=== PATIENT | female | born 1965 | race Caucasian/White ===

== ENCOUNTER → 2024-06-14 11:16 | Outpatient (BNVA) | payer OTHER, SELFPAY | PROVIDERS: PCP Nurse Practitioner Family; Visit Provider Nurse Practitioner Family | DX: E78.5 Hyperlipidemia, unspecified (principal); M25.50 Pain in unspecified joint; I10 Essential (primary) hypertension; R53.83 Other fatigue | CPT/HCPCS: 80053; 80061; 84443; 85025; 86038; 86431 ==

== ENCOUNTER 2024-06-25 13:16 | Outpatient (CLI) | payer OTHER, SELFPAY ==
--- NOTE | 2024-06-25 13:30 | XR_ITS ---
WS: [id number] SCREENING DEXA SCAN [place] CLINICAL INFORMATION: M81.0 - Age-related osteoporosis without current patholog... COMPARISON: None. FINDINGS: The L1-L4 bone mineral density measures 1.128 g/cm2. This corresponds to a T score score of -0.4 and Z score of 0.3. Left femoral neck bone mineral density measures 0.785 g/cm2. This corresponds to a T score of -1.8 an d Z score of -1.1. Right femoral neck bone mineral density measures 0.792 g/cm2. This corresponds to a T score -1.7of an d Z score of -1.1. Mean femoral neck bone mineral density measures 0.788 g/cm2. This corresponds to a T score of -1.7 an d Z score of -1.1. XR/XR DEXA axial skeleton* [id number] IMPRESSION: Normal bone mineralization lumbar spine. Osteopenia femoral necks. Patient's FRAX calculated 10 year probability for major osteoporotic fracture i s 6.6% and osteoporotic hip fracture is 0.4%.
--- NOTE | 2024-06-25 14:00 | MM_ITS ---
WS: [id number] Bilateral screening 3D tomosynthesis digital mammogram, 06/25/2024 1:19 PM Clinical Data: Z12.39 - Encounter for other screening for malignant neop... Comparison: None. Findings: No spiculated masses or clustered calcifications are seen. There are no secondary signs of carcinoma . MM/MM scr BI tomosynthesis [id number] Impression: Negative bilateral mammogram with no prior exam for review. Recommend annual screening mammograms. BIRADS: 1 - Negative FOLLOW UP: 1 Year Follow-up DENSITY: The breasts are heterogeneously dense, which may obscure small masses. The CAD price checker was used
== END 2024-06-25 13:17 | disposition home or self-care (01) ==
PROVIDERS: PCP Nurse Practitioner Family; Visit Provider Nurse Practitioner Family
DX: Z12.31 Encounter for screening mammogram for malignant neoplasm of breast (principal); R92.333 Mammographic heterogeneous density, bilateral breasts; Z13.820 Encounter for screening for osteoporosis; M81.0 Age-related osteoporosis without current pathological fracture; M85.89 Other specified disorders of bone density and structure, multiple sites
CPT/HCPCS: 77063; 77067; 77080

== ENCOUNTER → 2024-10-01 13:29 | Outpatient (BNVA) | payer OTHER, SELFPAY | PROVIDERS: PCP Nurse Practitioner Family; Visit Provider Podiatrist Foot & Ankle Surgery | DX: M79.671 Pain in right foot (principal); M79.672 Pain in left foot; R22.41 Localized swelling, mass and lump, right lower limb; G57.62 Lesion of plantar nerve, left lower limb; M72.2 Plantar fascial fibromatosis | CPT/HCPCS: 73630 ==